=== PATIENT | male | born 1955 | race Hispanic/Latino ===

== ENCOUNTER 2016-07-16 16:55 | Emergency (ER) | payer SELFPAY ==
[2016-07-16] MEDS ORDERED: MOTRIN PO ONE (19:38)
--- NOTE | 2016-07-16 19:38 | Emergency Department Report ---
ED Lower Extremity HPI - General Chief Complaint: Extremity Injury, Lower Stated Complaint: RT FOOT SWOLLEN Time Seen by Provider: 07/16/16 19:36 Source: patient Mode of arrival: Ambulatory Limitations: No Limitations - History of Present Illness Initial Comments: 60-year-old male past medical history none presents with complaint of one week of discomfort in the right first metacarpal joint area at base of right great toe. Patient states it makes it slightly uncomfortable walk. Patient denies any fever or chills. Denies any direct trauma or lacerations to foot. Patient is ambulatory with mild discomfort. Denies any other symptoms. States he has not taken any medicines for the pain or discomfort MD Complaint: foot injury Onset/Timin -: week(s) Injury: Foot: Right, Toes: Right Place: home, work Severity: moderate Severity scale (0 -10): 5 Improves With: immobilization Worsens With: weight bearing Associated Symptoms: ambulatory - Related Data Previous Rx's Medication Instructions Recorded Last Taken Type Naproxen [Naprosyn TAB] 500 mg PO BID PRN #25 tablet 07/16/16 Unknown Rx Sulfamethoxazole/Trimethoprim 1 each PO BID #14 tablet 07/16/16 Unknown Rx [Bactrim DS TAB] predniSONE [Deltasone] 40 mg PO QDAY #10 tablet 07/16/16 Unknown Rx Allergies Allergy/AdvReac Type Severity Reaction Status Date / Time No Known Allergies Allergy Unverified 07/16/16 17:04 ED Review of Systems ROS: Stated complaint: RT FOOT SWOLLEN Other details as noted in HPI Constitutional: denies: chills, fever Eyes: denies: eye pain, eye discharge, vision change ENT: denies: ear pain, throat pain Respiratory: denies: cough, shortness of breath, wheezing Cardiovascular: denies: chest pain, palpitations Endocrine: no symptoms reported Gastrointestinal: denies: abdominal pain, nausea, diarrhea Genitourinary: denies: urgency, dysuria Musculoskeletal: denies: back pain, joint swelling, arthralgia Skin: denies: rash, lesions Neurological: denies: headache, weakness, paresthesias Psychiatric: denies: anxiety, depression Hematological/Lymphatic: denies: easy bleeding, easy bruising ED Past Medical Hx - Past Medical History Previous Medical History?: No - Surgical History Past Surgical History?: No - Social History Smoking Status: Never Smoker Substance Use Type: None - Medications Home Medications: Home Medications Medication Instructions Recorded Confirmed Last Taken Type Naproxen [Naprosyn TAB] 500 mg PO BID PRN #25 tablet 07/16/16 Unknown Rx Sulfamethoxazole/Trimethoprim 1 each PO BID #14 tablet 07/16/16 Unknown Rx [Bactrim DS TAB] predniSONE [Deltasone] 40 mg PO QDAY #10 tablet 07/16/16 Unknown Rx ED Physical Exam - General Limitations: No Limitations General appearance: alert, in no apparent distress - Head Head exam: Present: atraumatic, normocephalic - Eye Eye exam: Present: normal appearance, PERRL, EOMI - ENT ENT exam: Present: mucous membranes moist - Neck Neck exam: Present: normal inspection, full ROM - Respiratory Respiratory exam: Present: normal lung sounds bilaterally. Absent: respiratory distress - Cardiovascular Cardiovascular Exam: Present: regular rate, normal rhythm. Absent: systolic murmur, diastolic murmur, rubs, gallop - GI/Abdominal GI/Abdominal exam: Present: soft, normal bowel sounds - Rectal Rectal exam: Present: deferred - Extremities Exam Extremities exam: Present: normal inspection - Expanded Lower Extremity Exam Right Hip exam: Present: normal inspection, full ROM Upper Leg exam: Present: normal inspection, full ROM Knee exam: Present: normal inspection, full ROM Lower Leg exam: Present: normal inspection, full ROM Ankle exam: Present: normal inspection, full ROM Foot/Toe exam: Present: tenderness, swelling, erythema (erythema surrounding first MCP joint base of great toe area approximately 3-4 cm in diameter no palpable fluctuance or abscess slight erythema) Neuro vascular tendon exam: Present: no vascular compromise (distal dorsalis pedis and posterior tibial pulses intact) Gait: Positive: antalgic (slightly antalgic gait but patient is ambulatory) 1 - Mild pain swelling and erythema here - Back Exam Back exam: Present: normal inspection - Neurological Exam Neurological exam: Present: alert, oriented X3, CN II-XII intact, normal gait - Psychiatric Psychiatric exam: Present: normal affect, normal mood - Skin Skin exam: Present: warm, dry, intact, normal color. Absent: rash ED Course Vital Signs 07/16/16 17:01 Temperature 97.4 F L Pulse Rate 85 Respiratory 18 Rate Blood Pressure 124/82 O2 Sat by Pulse 100 Oximetry ED Lower Extremity MDM - Medical Decision Making A/P: Right great toe gout flare versus small area of foot cellulitis 1-borders of erythema at base of great toe marked 2-patient is ambulatory 3-xray is unremarkable 4-I will cover empirically for possible cellulitis of this area with Bactrim twice a day 7 days 5- naproxen 500 when necessary, short course prednisone 6-advised patient to return to the ED in 48-72 hours if symptoms worsen area of erythema/redness spreads beyond the borders that I marked which is approximately 4-5 cm in diameter around base of right MCP joint or if he develops fever or chills or inability to walk due to severe pain or visible or palpable fluctuance in area Critical care attestation.: If time is entered above; I have spent that time in minutes in the direct care of this critically ill patient, excluding procedure time. ED Disposition Clinical Impression: Toe pain, right Disposition: DISCHARGED TO HOME OR SELFCARE Is pt being admited?: No Does the pt Need Aspirin: No Instructions: Acute Gouty Arthritis (ED), Cellulitis (ED) Prescriptions: Naproxen [Naprosyn TAB] 500 mg PO BID PRN #25 tablet PRN Reason: Pain predniSONE [Deltasone] 40 mg PO QDAY #10 tablet Sulfamethoxazole/Trimethoprim [Bactrim DS TAB] 1 each PO BID #14 tablet Referrals: [facility] [Outside] - 3-5 Days ELE GALE MD [Staff Physician] - 3-5 Days ARIN FONSECA MD [Staff Physician] - 3-5 Days Forms: Work/School Release Form(ED) Time of Disposition: 20:10
[2016-07-16 21:36] VITALS: BP 127/83
--- NOTE | 2016-07-17 10:30 | XRay Report ---
RIGHT TOES: History: Right toe pain. The bony architecture is intact. Bony alignment is normal. No soft tissue abnormalities are seen. The joint spaces appear preserved. IMPRESSION: Normal right toes.
== END 2016-07-16 21:39 | disposition home or self-care (01) ==
LOC: ED 16:55
DX: M79.674 Pain in right toe(s) (principal)

== ENCOUNTER 2018-03-16 16:39 | Emergency (ER) | payer SELFPAY ==
[2018-03-16 16:51] VITALS: BP 112/76
--- NOTE | 2018-03-16 17:39 | XRay Report ---
FINAL REPORT EXAM: XR FOOT 3+V LT HISTORY: pain, swelling TECHNIQUE: Three views left foot Comparison: None FINDINGS: Normal bony mineralization. No fracture or dislocation identified. Bipartite ossicle left great toe laterally. Mild soft tissue reticulation along the medial midfoot. Soft tissue reticulation about the ankle with obscuration of Kager's fat pad. Mild tibiotalar degener ative spurring. Small mature plantar calcaneal spur. IMPRESSION: No definite acute fracture or dislocation. Mild tibiotalar degenerative arthritis. Soft tissue reticulation about the ankle joint with obscuration of Kager's fat pad suggestive of unde rlying pathology. No definite ankle joint effusion. The Achilles tendon appears to be intact. Small plantar calcaneal spur.
[2018-03-16 19:56] LABS: Basophils # (Auto) 0.1 K/mm3 (0.0-0.1); Basophils % (Auto) 0.8 % (0.0-1.8); Eosinophils # (Auto) 0.3 K/mm3 (0.0-0.4); Eosinophils % (Auto) 3.4 % (0.0-4.3); Hematocrit 41.5 % (35.5-45.6); Hemoglobin 13.8 gm/dl (11.8-15.2); Lymphocytes # (Auto) 2.4 K/mm3 (1.2-5.4); Lymphocytes % (Auto) 24.1 % (13.4-35.0); Mean Corpuscular HGB Conc 33 % (32-34); Mean Corpuscular Volume 83 fl (84-94); Monocytes # (Auto) 0.9 K/mm3 (0.0-0.8); Monocytes % (Auto) 8.4 % (0.0-7.3); Platelet Count 361 K/mm3 (140-440); Red Blood Count 4.98 M/mm3 (3.65-5.03); Red Cell Distribution Width 15.7 % (13.2-15.2)
--- NOTE | 2018-03-16 20:15 | Emergency Department Report ---
ED General Adult HPI - General Chief complaint: Extremity Problem,Nontraumatic Stated complaint: LFT LEG INJURY/PAIN Time Seen by Provider: 03/16/18 19:02 Source: patient Mode of arrival: Wheelchair Limitations: No Limitations - Related Data Previous Rx's Medication Instructions Recorded Last Taken Type Naproxen [Naprosyn TAB] 500 mg PO BID PRN #25 tablet 07/16/16 Unknown Rx Sulfamethoxazole/Trimethoprim 1 each PO BID #14 tablet 07/16/16 Unknown Rx [Bactrim DS TAB] predniSONE [Deltasone] 40 mg PO QDAY #10 tablet 07/16/16 Unknown Rx Acetaminophen/Codeine [Tylenol 1 tab PO Q6H PRN #20 tab 03/16/18 Unknown Rx /Codeine # 3 tab] Ketorolac [Toradol] 10 mg PO Q6H PRN #20 tablet 03/16/18 Unknown Rx Allergies Allergy/AdvReac Type Severity Reaction Status Date / Time No Known Allergies Allergy Unverified 07/16/16 17:04 ED Review of Systems ROS: Stated complaint: LFT LEG INJURY/PAIN Other details as noted in HPI ED Past Medical Hx - Past Medical History Previous Medical History?: No - Surgical History Past Surgical History?: No - Social History Smoking Status: Never Smoker Substance Use Type: None - Medications Home Medications: Home Medications Medication Instructions Recorded Confirmed Last Taken Type Naproxen [Naprosyn TAB] 500 mg PO BID PRN #25 tablet 07/16/16 Unknown Rx Sulfamethoxazole/Trimethoprim 1 each PO BID #14 tablet 07/16/16 Unknown Rx [Bactrim DS TAB] predniSONE [Deltasone] 40 mg PO QDAY #10 tablet 07/16/16 Unknown Rx Acetaminophen/Codeine [Tylenol 1 tab PO Q6H PRN #20 tab 03/16/18 Unknown Rx /Codeine # 3 tab] Ketorolac [Toradol] 10 mg PO Q6H PRN #20 tablet 03/16/18 Unknown Rx ED Physical Exam - General Limitations: No Limitations ED Course Vital Signs 03/16/18 16:49 Temperature 98.8 F Pulse Rate 103 H Respiratory 18 Rate Blood Pressure 112/76 O2 Sat by Pulse 96 Oximetry ED Medical Decision Making - Lab Data Result diagrams: 03/16/18 19:31 - Medical Decision Making Gouty arthritis, cellulitis, ankle sprain, osteochondritis dissecans, synovial osteochondromatosis, pigmented villonodular synovitis Critical care attestation.: If time is entered above; I have spent that time in minutes in the direct care of this critically ill patient, excluding procedure time. ED Disposition Clinical Impression: Ankle pain, right Disposition: [id number] TO HOME OR SELFCARE Is pt being admited?: No Does the pt Need Aspirin: No Condition: Stable Instructions: Arthralgia (ED) Additional Instructions: X-ray showed a Kager's sign, which associated with several possibilities as in the cold ankle fracture, versus osteochondritis dissecans, synovial osteochondromatosis, and synovitis. Plan is to splint the ankle and placed on crutches to promote rest and healing will cover with anti-inflammatory and pain medication. Have follow-up with or so. Transmitted she drinks. She more redness or red streaking up the ankle to suggest any infectious processes at this present time. White blood cell count is normal. The ankle has minimal warmth. There is no fever, no signs of injuries can abrasions or puncture wounds to suggest any infectious processes Prescriptions: Acetaminophen/Codeine [Tylenol /Codeine # 3 tab] 1 tab PO Q6H PRN #20 tab PRN Reason: Pain, Moderate (4-6) Ketorolac [Toradol] 10 mg PO Q6H PRN #20 tablet PRN Reason: Pain Referrals: RAGHU MCINTOSH DO [Primary Care Provider] - 3-5 Days ELE GALE MD [Staff Physician] - 3-5 Days
[2018-03-16] MEDS ORDERED: IBUPROFEN PO ONE ×2 (20:19→20:21)
[2018-03-16] MEDS ORDERED: NORCO 5/325 PO ONE (20:19)
[2018-03-16] MEDS ORDERED: NORCO 5/325 ONE (20:21)
== END 2018-03-16 20:47 | disposition home or self-care (01) ==
LOC: ED 16:39
DX: M25.571 Pain in right ankle and joints of right foot (principal)
CPT/HCPCS: 36415; 85025